=== PATIENT | female | born 2000 | race Caucasian/White ===

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

== ENCOUNTER 2024-07-06 17:56 | Emergency (ER) | payer BC, OTHER ==
[~2024-07-06] VITALS: Ht 157.5 cm; Wt 72.3 kg
--- NOTE | 2024-07-06 18:02 | Physician Documentation ---
History of Present Illness ~ Stated Complaint: "TROUBLE WITH HER HANDS/ABD PAIN" Time Seen by MD: 18:26 HPI This 24-year-old female patient presents to the ED with a complaint of general malaise , right flank pain and right lower quadrant pain. Also states she has felt nauseous and generally unwell. Medication Reconciliation Allergies: Coded Allergies: No Known Allergies (Unverified , 09/25/15) Miscellaneous Medications Home Med List (No Home Medications), (Reported) Review of Systems All Other Systems at this time: Reviewed and Negative ROS As stated above in the HPI, otherwise all systems are reviewed and negative. Physical Exam Physical Exam General: Alert, no apparent distress. Cardiovascular: Regular rate and rhythm, no murmurs. Gastrointestinal: Soft, positive rebound tenderness, Neurologic: Oriented x4. Psychiatric: Normal mood and affect. Skin: Normal color, warm and dry. No edema, no ecchymosis. Progress Results/Orders Results/Orders Orders - JOSE CORBETT INVESTIGATIONS MANAGER Ct Abdomen Pelvis (07/06/24 19:45) Completed Orders - JOSE CORBETT INVESTIGATIONS MANAGER Ct Abdomen Pelvis (07/06/24 19:45) Acetaminophen 325mg Tablet (Tylenol Tabl (07/06/24 19:05) Iohexol 300mg/Ml 100ml Inj. (Omnipaque-3 (07/06/24 19:16) Medications Received in ER Medications (Trade) Dose Ordered Sig/Chloe Route PRN Reason Start Time Stop Time Status Last Admin Dose Admin (Tylenol tablet) 650 mg ONCE ONCE PO 07/06/24 19:05 07/06/24 19:06 DC 07/06/24 19:27 650 MG Vital Signs 07/06/24 07/06/24 07/06/24 07/06/24 18:04 18:53 18:53 19:44 Temp 98.9 100.1 98.5 Pulse 122 111 106 Resp 17 16 16 16 B/P (MAP) 117/79 98/62 (74) 116/74 (88) Pulse Ox 98 98 97 O2 Flow Rate 0 0 0 07/06/24 20:52 Temp 98.5 Pulse 106 Resp 16 B/P (MAP) 116/74 Pulse Ox 97 Laboratory Tests Test 07/06/24 18:30 07/06/24 18:35 Urine Specimen Description Cln catch midstream Urine Color Yellow Urine Clarity Clear Urine pH 7.5 Urine Specific [place] 1.020 Urine Protein Trace Urine Glucose (UA) Negative Urine Ketones Negative Urine Occult Blood Negative Urine Nitrite Negative Urine Bilirubin Negative Urine Urobilinogen 0.2 Urine Leukocyte Esterase Negative Urine RBC 3-10 Urine WBC 5-10 H Urine Squamous Epithelial Cells Few Urine Bacteria Few Urine Mucus Few Urine Culture Indicated Indicated Volume Urine Centrifuged 10 ml Urine HCG, Qualitative Negative Urine Comment White Blood Count 9.7 Red Blood Count 4.69 Hemoglobin 12.5 Hematocrit 37.7 Mean Corpuscular Volume 80.4 Mean Corpuscular Hemoglobin 26.7 L Mean Corpuscular Hemoglobin Concent 33.2 Red Cell Distribution Width 14.5 Platelet Count 230 Mean Platelet Volume 8.9 Neutrophils (%) (Auto) 91.7 H Lymphocytes (%) (Auto) 5.0 L Monocytes (%) (Auto) 3.2 Eosinophils (%) (Auto) 0 Basophils (%) (Auto) 0.1 Neutrophils # (Auto) 8.9 H Lymphocytes # (Auto) 0.5 L Monocytes # (Auto) 0.3 Eosinophils # (Auto) 0.0 Basophils # (Auto) 0.0 CBC Comment Sodium Level 136 Potassium Level 3.8 Chloride Level 103 Carbon Dioxide Level 24.7 Anion Gap 8 Blood Urea Nitrogen 17 Creatinine 0.83 Estimated GFR/1.73 m2 84 BUN/Creatinine Ratio 20.5 H Glucose Level 99 Calcium Level 8.8 Total Bilirubin 0.5 Aspartate Amino Transf (AST/SGOT) 19 Alanine Aminotransferase (ALT/SGPT) 20 Alkaline Phosphatase 52 Total Protein 8.1 Albumin 3.9 Globulin 4.2 Albumin/Globulin Ratio 0.9 L Lipase 31 Chemistry Comments Microbiology Date/Time Source Procedure Growth Status 07/06/24 18:52 Urine Clean Catch Midstream Urine Culture - Preliminary Culture received. Resulted Medical Decision Making Findings This 24-year-old female was initially concerning for positive rebound tenderness and suspected appendicitis based on her of fever all presentation and right lower quadrant tenderness. However her CT came back negative without any concerns. Discussed these findings with the family and explain this may be gastroenteritis or GI upset. They seemed reassured and explained to take ibuprofen and Tylenol increase fluid intake and rest. Differential Dx:Considerations: Include: Abscess, Atopic dermitis, Cellulitis, Contact dermatitis, Drug reaction, Erysipelas, Erythema multiforme, Erythema nodosum, Henoch-Schonlein purpura, Herpes zoster, Herpes simplex, Impetigo, Menigococcemia, Molluscum contagiosum, Pityriasis rosea, Pediculosis, RMSF, Roseola infantum, Scabies, Scarlet fever, Tinea, Varicella, Viral exanthem, Urticaria, Other Departure Disposition: HOME / SELF CARE / HOMELESS Impression: Primary Impression: Viral gastroenteritis Condition: Stable Discharge Instructions: Viral Gastroenteritis, Adult, [id number] Referrals: NO PRIMARY CARE PROVIDER (PCP) Signature Scribe Signature: h Attestation: The note accurately reflects work and decisions made by me.Jose Busch NP 07/06/24 23:54 JOSE CORBETT NP July 06, 2024 18:02
[2024-07-06 18:42] LABS: BILIRUBIN,URINE NEGATIVE (Neg); CLARITY,URINE CLEAR (Clear); COLOR,URINE YELLOW (Yellow); GLUCOSE, URINE NEGATIVE (Neg); KETONES,URINE NEGATIVE (Neg); LEUKOCYTE ESTERASE ,URINE NEGATIVE (Neg); NITRITES, URINE NEGATIVE (Neg); OCCULT BLOOD,URINE NEGATIVE (Neg); PH,URINE 7.5 (4.8-8.0); PROTEIN,URINE TRACE mg/dl (Neg); UROBILINOGEN,URINE 0.2 E.U/dL (0.2-1.0)
[2024-07-06 18:42] LABS: BASOPHILS % (AUTO) 0.1 % (0-1); EOSINOPHILS % (AUTO) 0 % (0-6); HEMATOCRIT 37.7 % (35.0-45.0); HEMOGLOBIN 12.5 g/dl (12.0-16.0); LYMPHOCYTES # (AUTO) 0.5 X10'3 (1.1-4.8); MEAN CORPUSCULAR HEMOGLOBIN 26.7 PG (27.0-31.0); MEAN CORPUSCULAR HGB CONC 33.2 g/dL (33.0-36.5); MEAN CORPUSCULAR VOLUME 80.4 FL (78-98); MEAN PLATELET VOLUME 8.9 FL (7.4-10.4); MONOCYTES # (AUTO) 0.3 X10'3 (0-0.9); MONOCYTES % (AUTO) 3.2 % (2-12); NEUTROPHILS # (AUTO) 8.9 X10'3 (1.8-7.7); NEUTROPHILS % (AUTO) 91.7 % (42-75); PLATELET COUNT 230 X10'3 (140-440); RED BLOOD COUNT 4.69 X10'6 (4.20-5.60); RED CELL DISTRIBUTION WIDTH 14.5 % (11.5-14.5); WHITE BLOOD COUNT 9.7 X10'3 (4.5-11.0)
[2024-07-06 18:47] LABS: UA COLLECTION TYPE CLN CATCH MIDSTREAM; URINE HCG NEGATIVE (NEG)
[2024-07-06 18:49] LABS: MUCUS STRANDS FEW /LPF (Neg); SQUAMOUS EPITHELIAL CELL,UR FEW /LPF (FEW)
[2024-07-06 18:51] LABS: BACTERIA,URINE FEW /HPF (Neg)
[2024-07-06 18:56] LABS: ALANINE AMINOTRANSFERASE 20 U/L (12-78); ALBUMIN 3.9 G/DL (3.4-5.0); ALBUMIN/GLOBULIN RATIO 0.9 (1.1-1.5); ALKALINE PHOSPHATASE 52 IU/L (46-116); ANION GAP 8 (8-16); ASPARTATE AMINO TRANSFERASE 19 U/L (10-37); BILIRUBIN,TOTAL 0.5 MG/DL (0.1-1.0); BLOOD UREA NITROGEN 17 MG/DL (7-18); BUN/CREATININE RATIO 20.5 (10.0-20.0); CALCIUM 8.8 MG/DL (8.5-10.1); CHLORIDE 103 MMOL/L (99-107); CREATININE 0.83 MG/DL (0.40-0.90); GLUCOSE 99 MG/DL (70-104); LIPASE 31 U/L (16-77); POTASSIUM 3.8 MMOL/L (3.5-5.1); SODIUM 136 MMOL/L (135-145); TOTAL CARBON DIOXIDE 24.7 MMOL/L (24-32); TOTAL PROTEIN 8.1 G/DL (6.4-8.2); eCRCL 83 ML/MIN; eGFR 84 ML/MIN
[2024-07-06] MEDS ORDERED: iohexol 300mg/ml 100ml inj. ONE (19:16)
[2024-07-06] MEDS: acetaminophen 325mg tablet PO ONE (19:27)
--- NOTE | 2024-07-06 20:22 | RADIOLOGY REPORT ---
Exam: CT CT ABDOMEN PELVIS W/ IV CONTRAST History: flank pain and RLQ pain Comparison Study: None Contrast: Type of contrast: Omnipaque 300 Contrast injected: 100 cc Contrast wasted: 0 TECHNIQUE: A digital repair order clerk image was obtained. During the uneventful, intravenous administration of c ontrast material, multislice data acquisition was obtained through the abdomen and pelvis. The data s et was subsequently reconstructed into axial images. Images were reviewed on a work station using a c ombination of axial and multiplanar using a variety of window levels and settings. Radiation Dose Information: CT Dose: CTDI volume is 18.31 mGy. Dose-length product is 1004.44 mGy*cm FINDINGS: Lung Bases: No acute or significant lung base finding. Normal heart size. No pleural or pericardial effusion. Liver: The liver is normal in size. No focal lesions. Normal hepatic vascular enhancement. Gallbladder and Biliary Tree: Unremarkable Spleen: Unremarkable Pancreas: The pancreas is normal in appearance without focal lesions or abnormal enhancement. Adrenal Glands: Unremarkable Kidneys: Kidneys demonstrate normal symmetric enhancement without focal lesions, calculi or hydroneph rosis. Bladder: Unremarkable Bowel: The stomach is grossly normal in appearance. Small bowel and colon are normal in caliber and d istribution. The appendix is not visualized; however, no secondary findings of acute appendicitis id entified. Small bowels are nondilated fluid filled. Ascites: Absent Lymphadenopathy: No mesenteric, retroperitoneal or periportal lymphadenopathy. Abdominal Wall and Mesentery: Unremarkable. Vasculature: The visualized abdominal aorta is normal in size and caliber. Abdominal and pelvic vess els demonstrate normal enhancement. Pelvic Organs: Uterus is mildly deviated towards the left side. There is small amount of free fluid s een in the posterior cul-de-sac. Musculoskeletal: No aggressive focal bony lesions, acute fractures or dislocation. Soft tissues: Unremarkable. IMPRESSION: 1. No acute abnormality in the abdomen or pelvis. 2. Small amount of free fluid seen in the posterior cul-de-sac. All CT scans at this medical facility are performed using dose modulation techniques as appropriate t o a performed exam including the following: Automated exposure control was utilized; adjustment of th e MA and/or KV according to patient size; and use of iterative reconstruction technique.
[2024-07-06 20:52] VITALS: BP 116/74; PULSE 106; RESP 16; TEMP 98.5; O2SAT 97
== END 2024-07-06 20:54 | disposition home or self-care (01) ==
LOC: ER 17:57
DX: A08.4 Viral intestinal infection, unspecified (principal)
CPT/HCPCS: 36415; 74177; 80053; 81001; 81025; 83690; 85025; 87088; 99285; Q9967